=== PATIENT | female | born 1965 | race Caucasian/White ===

== ENCOUNTER 2019-05-31 10:17 | Emergency (ER) | payer OTHER ==
[2019-05-31] MEDS ORDERED: Adacel (T-DAP) 0.5 ML SYRINGE ONE (10:49)
--- NOTE | 2019-05-31 11:09 | CT ---
CT Brain WO Con HISTORY: Fall with head injury. COMPARISON: None. FINDINGS: The ventricular and cisternal system is within normal limits. There are no signs of intrace rebral hemorrhage or extra-axial fluid collections. Please refer to the facial bone CT report for any additional findings. IMPRESSION: No acute intracranial abnormalities.
--- NOTE | 2019-05-31 11:14 | CT ---
CT Facial Bones WO Con HISTORY: Fall with facial injury. COMPARISON: None. FINDINGS: Soft tissue injury and nasal bone fracture are noted. There is some air within the soft tis sues at the base of the nose. Nasal septum is deviated to the left. The zygomatic arches are intact. There is a tiny amount of fluid seen within the left maxillary sinus and minimal mucosal montes ge in both sinuses. No evidence of any maxillary or orbital fracture. Pterygoid processes are intact. No evidence of any mandibular fracture. The condyles are in normal position. IMPRESSION: Nasal bone fracture.
[2019-05-31] MEDS ORDERED: Acetaminophen 500 MG TAB ONE (12:21)
[2019-05-31] MEDS ORDERED: Ibuprofen 800 MG TAB ONE (12:21)
== END 2019-05-31 12:20 | disposition home or self-care (01) ==
LOC: ERS 10:17
DX: S02.2XXA Fracture of nasal bones, initial encounter for closed fracture (principal); S00.81XA Abrasion of other part of head, initial encounter; W22.8XXA Striking against or struck by other objects, initial encounter
CPT/HCPCS: 12011; 70450; 70486; 90715

== ENCOUNTER 2019-06-03 08:56 | Day surgery (SDC) | payer OTHER ==
[2019-06-02 14:12] VITALS: BMI 24.9
[2019-06-03] MEDS ORDERED: Oxymetazoline HCl 0.05% ( 15 ML ) ONE (09:54)
[2019-06-03] MEDS ORDERED: Midazolam HCl 2 mg/2 ml Vial ONE ×2 (11:18→11:20)
[2019-06-03] MEDS ORDERED: Fentanyl 250 MCG/5 ML VIAL ONE (11:20)
[2019-06-03] MEDS ORDERED: Bacitracin Zinc Ointment 30 gm TUBE ONE (11:22)
[2019-06-03] MEDS ORDERED: Lidocaine 1% w/Epinephrine 1:100K 20 ML VIAL ONE (11:22)
[2019-06-03] MEDS ORDERED: Hydrocodone-Acetamin 15 ML UDCUP ONE (13:22)
[2019-06-03] MEDS ORDERED: Morphine 2 MG/ML SYRINGE ONE (13:43)
--- NOTE | 2019-06-04 10:30 | OP ---
DATE OF PROCEDURE: 06/03/2019 PREOPERATIVE DIAGNOSES: 1. Acquired nasal deformity. 2. Closed nasal fractures. 3. Nasal septal deviation/hematoma. 4. Bilateral inferior turbinate hypertrophy. POSTOPERATIVE DIAGNOSES: 1. Acquired nasal deformity. 2. Closed nasal fractures. 3. Nasal septal deviation/hematoma. 4. Bilateral inferior turbinate hypertrophy. PROCEDURES PERFORMED: 1. Nasal septoplasty. 2. Bilateral inferior turbinate submucosal resection. 3. Closed reduction of nasal fracture. ESTIMATED BLOOD LOSS: 10 mL. COMPLICATIONS: None. ANESTHESIA: GETA. DESCRIPTION OF PROCEDURE: The patient was taken to the operating room and placed supine on the table. General endotracheal anesthesia was obtained by the Anesthesia staff. Tube was secured in the left lower lip. The patient was placed in a beach chair position. Afrin pledgets were placed in the nasal cavity. Following this, the patient was prepped and draped for standard nasal procedure. Following this, Afrin pledgets were removed from the nasal cavity. 1% lidocaine with 1:100,000 epinephrine was injected into the nasal septum, inferior turbinates, and lateral nasal bones bilaterally. There was a severe nasal septal fracture and deformity and with a moderate size hematoma present in the septal fracture area. A Maximo incision was made on the left nasal septum. Submucoperichondrial dissection was performed bilaterally. The hematoma along with any fractured and potentially necrotic cartilage pieces were removed. There was a robust dorsal and caudal strut left in place as the nasal septum was replaced in its normal midline anatomic position. Following this, a plain gut stitch was placed securing the mucoperiosteal flaps. Following this, inferior turbinates were punctured on the anterior and inferior aspect and submucosal resection was performed with a submucosal microdebrider of the anterior and inferior portions of the inferior turbinates bilaterally. Following this, Jordan splints were placed and secured. The nasal bones were then mobilized using the blunt elevator bilaterally. The nasal bones were reapproximated in normal symmetric position and an external Kimball splint was placed. The patient tolerated the procedure well. Job ID: [id number]
--- NOTE | 2019-06-05 08:10 | EKG ---
Test Reason : PREOP Blood Pressure : / mmHG Vent. Rate : 080 BPM Atrial Rate : 080 BPM P-R Int : 146 ms QRS Dur : 078 ms QT Int : 372 ms P-R-T Axes : 060 092 044 degrees QTc Int : 429 ms Normal sinus rhythm Rightward axis Borderline ECG No previous ECGs available Confirmed by DR. Todd MASON ([id number]) on 06/05/2019 8:10:12 AM Referred By: NGA Confirmed By:DR. Todd MASON
== END 2019-06-03 14:30 | disposition home or self-care (01) ==
LOC: SDC 08:56
PROVIDERS: ATTEND Otolaryngology Plastic Surgery within the Head & Neck
PROC: 09BL7ZZ Excision of Nasal Turbinate, Via Natural or Artificial Opening (ICD-10-PCS; principal; 2019-06-03)
PROC: 09SM0ZZ Reposition Nasal Septum, Open Approach (ICD-10-PCS; principal; 2019-06-03)
DX: S02.2XXA Fracture of nasal bones, initial encounter for closed fracture (principal); J34.2 Deviated nasal septum; J34.3 Hypertrophy of nasal turbinates; M95.0 Acquired deformity of nose; J34.89 Other specified disorders of nose and nasal sinuses; Z88.1 Allergy status to other antibiotic agents; Z79.2 Long term (current) use of antibiotics; W01.10XA Fall on same level from slipping, tripping and stumbling with subsequent striking against unspecified object, initial encounter; Y93.73 Activity, racquet and hand sports; Y92.312 Tennis court as the place of occurrence of the external cause
CPT/HCPCS: 36415; 85014; 93005; 93010; J2001; J2250; J2270; J3010